=== PATIENT | female | born 1955 | race Hispanic/Latino ===

== ENCOUNTER 2024-05-30 19:26 | Emergency (ER) | payer OTHER ==
[2024-05-30 20:16] LABS: Absolute Basophils 0.1 K/uL (0-0.5); Absolute Eosinophils 0.1 K/uL (0-0.5); Absolute Lymphocytes (CBC) 2.4 K/uL (0.7-4.9); Absolute Neutrophil 7.6 K/uL (1.8-8.0); Basophils % 0.5 % (0-1.3); Eosinophils % 0.8 % (0-4.4); Lymphocytes % 21.4 % (15.3-44.8); MCHC 33.4 g/dL (32.0-36.0); MCV 86.9 fL (80-100); MPV 8.7 fL (7.6-11.3); Monocytes % 8.9 % (3.3-12.3); Neutrophils % 68.4 % (41.7-73.7); Platelets 274 thou/uL (152-406); RBC Red Blood Cell Count 4.49 M/uL (3.86-4.86); Red Cell Distribution Width 13.7 % (12.1-15.2)
[2024-05-30 20:23] LABS: PT Prothrombin Time 12.2 SECONDS (10-13.0); Protime INR 1.07
[2024-05-30 20:35] LABS: ALT/SGPT 21 U/L (13-56); AST/SGOT 16 U/L (15-37); Albumin 3.6 g/dL (3.4-5.0); Albumin/Globulin Ratio 0.9 (1.1-1.8); Alkaline Phosphatase 115 U/L (45-117); Anion Gap 9.4 mEq/L (5.0-15.0); BUN Blood Urea Nitrogen 16 mg/dL (7-18); Bicarbonate 23 mEq/L (21-32); Bilirubin Total 0.3 mg/dL (0.2-1.0); Globulin 4.1 g/dL (2.3-3.5); Glomerular Filtration Rate 67 ml/min (=/>90); Glucose Level 104 mg/dL (74-106); Magnesium 2.2 mg/dL (1.6-2.4); NT PRO-BNP 50 pg/mL (<125); Potassium 3.4 mEq/L (3.5-5.1); Protein, Total 7.7 g/dL (6.4-8.2); Sodium Level 137 mEq/L (136-145)
[2024-05-30 20:40] LABS: Bilirubin Direct < 0.2 mg/dL (0-0.2); Bilirubin Indirect, Calculated 0.1 mg/dL (0.2-0.8); Troponin High Sensitivity < 3.0 pg/mL (<58.9)
[2024-05-30] MEDS ORDERED: METHYLPREDNISOLONE 125 MG INJ ONE (20:46)
[2024-05-30] MEDS ORDERED: FAMOTIDINE 20 MG/2 ML VIAL IV ONE (20:47)
[2024-05-30] MEDS ORDERED: IBUPROFEN 400 MG TAB ONE (20:47)
[2024-05-30] MEDS ORDERED: LORATADINE 10 MG TAB ONE (21:00)
--- NOTE | 2024-05-30 21:46 | RAD REPORT ---
EXAMINATION: ONE VIEW CHEST XR CLINICAL INDICATION: Female, 69 years old.,CHEST PAIN TECHNIQUE: Frontal chest projection is submitted. Examination is limited by patient positioning and t echnique. COMPARISON: 01/03/2012 FINDINGS: The lungs are well inflated and clear. No pneumothorax or sizable effusion. The heart is normal in s ize. Mediastinal contours are unremarkable. IMPRESSION: No acute intrathoracic abnormalities.
--- NOTE | 2024-05-30 22:26 | ER ---
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 19:45 Coronavirus screen: Client denies travel out of the [place] in the last 14 days. Ebola rg5 Screen: Patient negative for fever greater than or equal to 101.5 degrees Fahrenheit, and additional compatible Ebola Virus Disease symptoms. Initial Sepsis Screen: Does the patient meet any 2 criteria? No. Patient's initial sepsis screen is negative. Does the patient have a suspected source of infection? No. Patient's initial sepsis screen is negative. Risk Assessment: Do you want to hurt yourself or someone else? Patient reports no desire to harm self or others. Onset of symptoms was May 30, 2024. Care prior to arrival: Medication(s) given: ASA, x 4. 19:45 Method Of Arrival: EMS: [facility] rg5 19:45 Acuity: PATTI 3 rg5 Triage Assessment: 19:45 General: Appears in no apparent distress. comfortable, Behavior is calm, cooperative, rg5 appropriate for age. Pain: Complains of pain in chest Pain radiates to neck Quality of pain is described as aching. EENT: No deficits noted. Neuro: Level of Consciousness is awake, Oriented to person, place, time. Cardiovascular: Reports chest pain, Patient's skin is warm and dry. Rhythm is sinus rhythm. Respiratory: Airway is patent Trachea midline Respiratory effort is even, unlabored, Respiratory pattern is. GI: Abdomen is round non-distended, Abd is soft and non tender. : No signs and/or symptoms were reported regarding the genitourinary system. Derm: Skin is intact, Skin is dry, Skin is normal, Skin temperature is warm. Musculoskeletal: Circulation, motion, and sensation intact. Range of motion: intact in all extremities. Historical: - Allergies: 19:59 No Known Allergies; rg5 - PMHx: 19:59 Diabetes mellitus; TIA; rg5 20:00 colon CA; rg5 - Immunization history:: Adult Immunizations not up to date. - Infectious Disease History:: Denies. - Social history:: Smoking status: Patient denies any tobacco usage or history of. - Family history:: not pertinent. Screenin:45 [facility] ED Fall Risk Assessment (Adult) History of falling in the last 3 months, rg5 including since admission No falls in past 3 months (0 pts) Confusion or Disorientation No (0 pts) Intoxicated or Sedated No (0 pts) Impaired Gait No (0 pts) Mobility Assist Device Used No (0 pt) Altered Elimination No (0 pt) Score/Fall Risk Level 0 - 2 = Low Risk Oriented to surroundings, Maintained a safe environment, Hourly rounding (assess needs \T\ fall precautionary measures) done. Abuse screen: Denies threats or abuse. Nutritional screening: No deficits noted. Tuberculosis screening: No symptoms or risk factors identified. Assessment: 19:45 Reassessment: see triage assesment. rg5 19:45 Pain: Complains of pain in chest Pain radiates to neck Quality of pain is described as rg5 aching, Pain began 1 hour ago. 20:30 Reassessment: Patient and/or family updated on plan of care and expected duration. Pain rg5 level reassessed. Patient is alert, oriented x 3, equal unlabored respirations, skin warm/dry/pink. 21:02 Reassessment: No changes from previously documented assessment. Patient and/or family rg5 updated on plan of care and expected duration. Pain level reassessed. Patient is alert, oriented x 3, equal unlabored respirations, skin warm/dry/pink. 22:00 Reassessment: No changes from previously documented assessment. Patient and/or family rg5 updated on plan of care and expected duration. Pain level reassessed. Patient is alert, oriented x 3, equal unlabored respirations, skin warm/dry/pink. Vital Signs: 19:40 BP 134 / 75; Pulse 91; Resp 17; Temp 98; Pulse Ox 98% on R/A; Weight 56.7 kg; Height 4 rg5 ft. 10 in. ; Pain 5/10; 20:30 BP 126 / 79; Pulse 85; Resp 17; Pulse Ox 99% on R/A; rg5 21:00 BP 124 / 70; Pulse 77; Resp 17; Pulse Ox 100% ; Pain 5/10; rg5 22:00 BP 104 / 75; Pulse 76; Resp 18; Pulse Ox 99% on R/A; Pain 0/10; rg5 19:40 Body Mass Index 26.12 (56.70 kg, 147.32 cm) rg5 19:40 Pain Scale: Adult rg5 21:00 Pain Scale: Adult rg5 22:00 Pain Scale: Adult rg5 [place] Coma Score: 05/31 03:19 Eye Response: spontaneous(4). Motor Response: obeys commands(6). Verbal Response: sp4 oriented(5). Total: 15. ED Course: 05/30 19:40 Arm band placed on right wrist. EKG completed in triage. Results shown to MD. rg5 19:45 Patient arrived in ED. ha1 19:45 Patient has correct armband on for positive identification. Bed in low position. Call rg5 light in reach. Side rails up X 1. Client placed on continuous cardiac and pulse oximetry monitoring. NIBP monitoring applied. ammunition assembly ii laborer on. Pulse ox on. NIBP on. Door closed. Noise minimized. Warm blanket given. 19:45 No provider procedures requiring assistance completed. Inserted saline lock: 20 gauge rg5 in right antecubital area, using aseptic technique. Blood collected. Flushed with 10 mL NS. Patient maintains SpO2 saturation greater than 95% on room air. 19:52 Everett Antoine, RHETT is Primary Nurse. rg5 19:59 Triage completed. rg5 20:03 Darin Ann MD is Attending Physician. sp4 20:33 XRAY Chest (1 view) In Process Unspecified. EDMS 22:49 Provided Education on: POST ER CARE. rg5 22:49 IV discontinued, bleeding controlled, No redness/swelling at site. Pressure dressing rg5 applied. Administered Medications: 20:52 Drug: MethylPrednisoLONE IVP 125 mg IVP once Route: IVP; Site: left antecubital; rg5 21:54 Follow up: Response: No adverse reaction rg5 20:52 Drug: Ibuprofen PO 800 mg PO once Route: PO; rg5 21:54 Follow up: Response: No adverse reaction rg5 20:52 Drug: Famotidine IVP 20 mg IVP once; dilute with 10 mL 0.9% NaCl; give over 2 minutes rg5 Route: IVP; Site: left antecubital; 21:54 Follow up: Response: No adverse reaction rg5 21:13 Drug: Loratadine PO 10 mg PO once Route: PO; rg5 21:54 Follow up: Response: No adverse reaction rg5 Medication: 19:45 VIS not applicable for this client. rg5 Outcome: 22:25 Discharge ordered by . segundo 22:49 Discharged to home ambulatory, rg5 22:49 Condition: stable 22:49 Instructed on discharge instructions, follow up and referral plans. Demonstrated understanding of instructions, follow-up care, medications, Prescriptions given X 1, 22:50 Patient left the ED. rg5 Signatures: Dispatcher [employer] EDMS Michelle Maurer, RN RN ha1 Darin Ann MD MD sp4 Everett Antoine RN RN rg5
--- NOTE | 2024-05-30 22:26 | EDPHYS ---
Physician Documentation [facility] Name: Crystal Upton Age: 69 yrs Sex: Female : 1955 Arrival Date: 05/30/2024 Time: 19:26 Bed 16 Private MD: ED Physician Darin Ann HPI: 05/30 20:03 This 69 yrs old Female presents to ER via EMS with complaints of Chest Pain. sp4 05/31 03:19 Patient presents with acute moderate chest pain. Patient states pain is began today. sp4 Yesterday patient was given shingles vaccine. Today patient has developed acute redness tenderness pain at the site of the vaccine right shoulder. Patient took Benadryl developed moderate midsternal chest pain.. Historical: - Allergies: 05/30 19:59 No Known Allergies; rg5 - PMHx: 19:59 Diabetes mellitus; TIA; rg5 20:00 colon CA; rg5 - Immunization history:: Adult Immunizations not up to date. - Infectious Disease History:: Denies. - Social history:: Smoking status: Patient denies any tobacco usage or history of. - Family history:: not pertinent. ROS: 05/31 03:19 Constitutional: Negative for fever, chills, and weight loss, positive chest pain sp4 All other systems are negative, Exam: 03:19 Constitutional: This is a well developed, well nourished patient who is awake, alert, sp4 and in no acute distress. Head/Face: Normocephalic, atraumatic. Eyes: Pupils equal round and reactive to light, extra-ocular motions intact. Lids and lashes normal. Conjunctiva and sclera are not injected. Cornea within normal limits. Periorbital areas with no swelling, redness, or edema. ENT: Nares patent. No nasal discharge, no septal abnormalities noted. Tympanic membranes are normal and external auditory canals are clear. Oropharynx with no redness, swelling, or masses, exudates, or evidence of obstruction, uvula midline. Mucous membranes moist. Neck: Trachea midline, no thyromegaly or masses palpated, and no cervical lymphadenopathy. Supple, full range of motion without nuchal rigidity, or vertebral point tenderness. Chest/axilla: Normal chest wall appearance and motion. Nontender with no deformity. No lesions are appreciated. Cardiovascular: Regular rate and rhythm with a normal S1 and S2. No gallops, murmurs, or rubs. Normal PMI, no JVD. No pulse deficits. Respiratory: Lungs have equal breath sounds bilaterally, clear to auscultation and percussion. No rales, rhonchi or wheezes noted. No increased work of breathing, no retractions or nasal flaring. Abdomen/GI: Soft, with normal bowel sounds. No distension or tympany. No guarding or rebound. No evidence of tenderness throughout. Back: No spinal tenderness. No costovertebral tenderness. Skin: Warm, dry with normal turgor. Normal color with no rashes, no lesions, and no evidence of cellulitis. MS/ Extremity: Pulses equal, no cyanosis. Neurovascular intact. Full, normal range of motion. Neuro: Awake and alert, GCS 15, oriented to person, place, time, and situation. Cranial nerves II-XII grossly intact. Motor strength 5/5 in all extremities. Sensory grossly intact. Psych: Awake, alert, with orientation to person, place and time. Behavior, mood, and affect are within normal limits 03:19 ECG was reviewed by the Attending Physician. EKG 1941 normal sinus rhythm normal EKG Vital Signs: 05/30 19:40 BP 134 / 75; Pulse 91; Resp 17; Temp 98; Pulse Ox 98% on R/A; Weight 56.7 kg; Height 4 rg5 ft. 10 in. ; Pain 5/10; 20:30 BP 126 / 79; Pulse 85; Resp 17; Pulse Ox 99% on R/A; rg5 21:00 BP 124 / 70; Pulse 77; Resp 17; Pulse Ox 100% ; Pain 5/10; rg5 22:00 BP 104 / 75; Pulse 76; Resp 18; Pulse Ox 99% on R/A; Pain 0/10; rg5 19:40 Body Mass Index 26.12 (56.70 kg, 147.32 cm) [facility] 19:40 Pain Scale: Adult rg5 21:00 Pain Scale: Adult rg5 22:00 Pain Scale: Adult rg5 [place] Coma Score: 05/31 03:19 Eye Response: spontaneous(4). Motor Response: obeys commands(6). Verbal Response: sp4 oriented(5). Total: 15. MDM: 05/30 19:41 Differential diagnosis: acute pericarditis, anxiety, coronary artery disease chest wall sp4 pain, costochondritis, esophagitis, gastritis. HEART Score: History: Slightly Suspicious (0), ECG: Normal (0), Age: > or = 65 years (2), Risk Factors: No Risk Factors Known (0), Troponin: < or = 1 x Normal Limit (0), Total Score = 0. The patient was not given aspirin in the Emergency Department. Aspirin not given, patient refused. Data reviewed: vital signs, nurses notes, lab test result(s), EKG, radiologic studies, plain films. ED course: EXAMINATION: ONE VIEW CHEST XR CLINICAL INDICATION: Female, 69 years old.,CHEST PAIN TECHNIQUE: Frontal chest projection is submitted. Examination is limited by patient positioning and technique. COMPARISON: 01/03/2012 FINDINGS: The lungs are well inflated and clear. No pneumothorax or sizable effusion. The heart is normal in size. Mediastinal contours are unremarkable. IMPRESSION: No acute intrathoracic abnormalities. . 20:05 Medical Screening Exam initiated [facility] 05/30 20:05 Order name: Basic Metabolic Panel; Complete Time: 21:58 [facility] 05/30 20:05 Order name: CBC with Diff; Complete Time: 21:58 [facility] 05/30 20:05 Order name: LFT's; Complete Time: 21:58 [facility] 05/30 20:05 Order name: Magnesium; Complete Time: 21:58 [facility] 05/30 20:05 Order name: NT PRO-BNP; Complete Time: 21:58 [facility] 05/30 20:05 Order name: PT-INR; Complete Time: 21:58 [facility] 05/30 20:05 Order name: Troponin HS; Complete Time: 21:58 [facility] 05/30 20:05 Order name: XRAY Chest (1 view); Complete Time: 21:58 [facility] 05/30 20:05 Order name: EKG; Complete Time: 20:05 [facility] 05/30 20:05 Order name: Cardiac monitoring; Complete Time: 20:17 [facility] 05/30 20:05 Order name: EKG - Nurse/Tech; Complete Time: 20:17 [facility] 05/30 20:05 Order name: IV Saline Lock; Complete Time: 20:17 [facility] 05/30 20:05 Order name: Labs collected and sent; Complete Time: 20:17 sp4 05/30 20:05 Order name: O2 Per Protocol; Complete Time: : sp4 05/30 20:05 Order name: O2 Sat Monitoring; Complete Time: : sp4 EC:41 Rate is 91 beats/min. Rhythm is regular, Normal Sinus Rhythm. QRS [place] is Normal. [place] sp4 interval is normal. QRS interval is normal. QT interval is normal. No Q waves. T waves are Normal. No ST changes noted. Clinical impression: No evidence of ischemia. Interpreted by me. Reviewed by me. Administered Medications: 20:52 Drug: MethylPrednisoLONE IVP 125 mg IVP once Route: IVP; Site: left antecubital; rg5 21:54 Follow up: Response: No adverse reaction rg5 20:52 Drug: Ibuprofen PO 800 mg PO once Route: PO; rg5 21:54 Follow up: Response: No adverse reaction rg5 20:52 Drug: Famotidine IVP 20 mg IVP once; dilute with 10 mL 0.9% NaCl; give over 2 minutes rg5 Route: IVP; Site: left antecubital; 21:54 Follow up: Response: No adverse reaction rg5 21:13 Drug: Loratadine PO 10 mg PO once Route: PO; rg5 21:54 Follow up: Response: No adverse reaction rg5 Disposition: 05/31 03:23 Chart complete. sp4 Disposition Summary: 05/30/24 22:25 Discharge Ordered Notes: Location: Home sp4 Problem: new sp4 Symptoms: have improved sp4 Condition: Stable sp4 Diagnosis - Chest pain, unspecified sp4 - Acute Local Reaction to Vaccination, Acute immunologic reaction to shingles sp4 vaccination Followup: sp4 - With: Private Physician - When: 1 - 2 days - Reason: Recheck today's complaints Discharge Instructions: - Discharge Summary Sheet sp4 - Nonspecific Chest Pain, Adult, [id number] sp4 Forms: - Patient Portal Instructions sp4 Prescriptions: - Claritin 10 mg Oral Tablet - take 1 tablet ORAL route once daily As needed; 30 tablet; Refills: 0, Product sp4 Selection Permitted Signatures: Dispatcher [employer] Darin Melendez MD MD sp4 Everett Antoine, RN RN rg5
[2024-05-30 23:03] VITALS: TEMP 98
[2024-05-30 23:07] VITALS: BP 104/75; O2SAT 99
--- NOTE | 2024-06-01 14:44 | EKG ---
Test Date: 2024-05-30 Test Time: 19:41:10 Glove Pairer: DAVID MEASUREMENT RESULTS: Intervals: Rate: 91 CT: 150 QRSD: 70 QT: 358 QTc: 440 [place]: P: 46 CT: 150 QRS: 24 T: 60 INTERPRETIVE STATEMENTS: Normal sinus rhythm Normal ECG Compared to ECG 10/02/2012 13:48:35 No significant changes Electronically Signed On 06-01-24 14:41:25 CDT by Archie Nolen
== END 2024-05-30 22:50 | disposition home or self-care (01) ==
LOC: ER 19:26
DX: R07.9 Chest pain, unspecified (principal); T50.Z95A Adverse effect of other vaccines and biological substances, initial encounter
CPT/HCPCS: 85025; 80048; 36415; 83735; 85610; 80076; 84484; 83880; 71045; J2919; 93005; 96374; 96375; 99285